=== PATIENT | male | born 1955 ===

== ENCOUNTER 2020-04-04 08:00 | Outpatient (CLI) | payer OTHER ==
[~2020-04-04 08:00] MED LIST: MICARDIS20 MG; PREVACID15 MG; SIMVASTATIN20 MG
== END 2020-04-04 15:00 | disposition home or self-care (01) ==
LOC: PPH VACUNA 08:00
DX: Z23 Encounter for immunization (principal)

== ENCOUNTER 2021-01-24 15:59 | Outpatient (CLI) | payer OTHER | END 2021-01-24 16:03 | disposition home or self-care (01) | LOC: RAD 15:59 | PROVIDERS: ATTEND Orthopaedic Surgery | DX: M17.12 Unilateral primary osteoarthritis, left knee (principal); M21.162 Varus deformity, not elsewhere classified, left knee ==

== ENCOUNTER → 2021-02-09 13:14 | Outpatient (CLI) | payer OTHER | END | disposition home or self-care (01) | LOC: LAB 13:14 | PROVIDERS: ATTEND Emergency Medicine Pediatric Emergency Medicine | DX: Z03.818 Encounter for observation for suspected exposure to other biological agents ruled out (principal) ==

== ENCOUNTER 2022-03-19 08:00 | Outpatient (CLI) | payer OTHER | END 2022-03-19 08:05 | disposition home or self-care (01) | LOC: PPH VACUNA 08:00 | PROVIDERS: ATTEND Emergency Medicine Pediatric Emergency Medicine | DX: Z23 Encounter for immunization (principal) | CPT/HCPCS: 90686; G0008 ==